=== PATIENT | male | born 1975 | race Caucasian/White ===

== ENCOUNTER 2018-07-24 13:26 | Emergency (ER) | payer BC ==
[2018-07-24] MEDS ORDERED: KETOROLAC TROMETHAMINE INJ/PF 30 MG/1 ML SDV IV ONE (14:40)
--- NOTE | 2018-07-24 14:42 | ER Document Report ---
ED GI/ - General Chief Complaint: Flank Pain Stated Complaint: FLANK PAIN Time Seen by Provider: 07/24/18 14:39 Primary Care Provider: DAISY GRANDA DO [Primary Care Provider] - Follow up as needed TRAVEL OUTSIDE OF THE [place] IN LAST 30 DAYS: No - Related Data Allergies/Adverse Reactions: No Known Allergies Allergy (Verified 07/24/18 13:35) Physical Exam - Vital signs Vitals: Temp Pulse Resp BP Pulse Ox 97.8 F 63 16 123/71 100 07/24/18 13:37 07/24/18 13:37 07/24/18 13:37 07/24/18 13:37 07/24/18 13:37 - General General appearance: Appears well, Alert In distress: None - HEENT Head: Normocephalic, Atraumatic Eyes: Normal Conjunctiva: Normal Nasal: Normal Mouth/Lips: Normal Mucous membranes: Normal Neck: Normal, Supple - Respiratory Respiratory status: No respiratory distress Chest status: Nontender Breath sounds: Normal. No: Rales, Rhonchi, Stridor, Wheezing Chest palpation: Normal - Cardiovascular Rhythm: Regular Heart sounds: S1 appreciated, S2 appreciated Murmur: No - Abdominal Inspection: Normal Distension: No distension - Back Back: CVA tenderness - Left - Extremities General upper extremity: Normal inspection, Normal strength General lower extremity: Normal inspection, Normal strength - Neurological Neuro grossly intact: Yes Cognition: Normal Orientation: AAOx4 Garret Coma Scale Eye Opening: Spontaneous [place] Coma Scale Verbal: Oriented Garret Coma Scale Motor: Obeys Commands Garret Coma Scale Total: 15 - Psychological Associated symptoms: Normal affect, Normal mood - Skin Skin Temperature: Warm Skin Moisture: Dry Skin Color: Normal Course - Vital Signs Vital signs: Temp Pulse Resp BP Pulse Ox 97.8 F 63 16 123/71 100 07/24/18 13:37 07/24/18 13:37 07/24/18 13:37 07/24/18 13:37 07/24/18 13:37 Discharge - Discharge Referrals: DAISY GRANDA DO [Primary Care Provider] - Follow up as needed
[2018-07-24 15:25] LABS: ABSOLUTE EOSINOPHILS # (AUTO) 0.2 10^3/uL (0.0-0.6); ABSOLUTE LYMPHOCYTES (AUTO) 2.1 10^3/uL (0.5-4.7); ABSOLUTE NEUT (AUTO) 6.6 10^3/uL (1.7-8.2); BASOPHILS % (AUTO) 0.5 % (0-2); EOSINOPHILS % (AUTO) 1.7 % (0-6); HEMATOCRIT 44.5 % (37.9-51.0); HEMOGLOBIN 15.3 g/dL (13.5-17.0); LYMPHOCYTES % (AUTO) 21.5 % (13-45); MEAN CORPUSCULAR HEMOGLOBIN 28.7 pg (27.0-33.4); MEAN CORPUSCULAR HGB CONC 34.3 g/dL (32.0-36.0); MEAN CORPUSCULAR VOLUME 84 fl (80-97); MONOCYTES % (AUTO) 9.8 % (3-13); PLATELET COUNT 265 10^3/uL (150-450); RED BLOOD COUNT 5.32 10^6/uL (4.35-5.55); RED CELL DISTRIBUTION WIDTH 13.8 % (11.5-14.0); SEGMENTED NEUTROPHILS % (AUTO) 66.5 % (42-78); TOTAL CELLS COUNTED % (AUTO) 100 %; WHITE BLOOD COUNT 9.9 10^3/uL (4.0-10.5)
--- NOTE | 2018-07-24 15:30 | ER Document Report ---
ED General - General Chief Complaint: Flank Pain Stated Complaint: FLANK PAIN Time Seen by Provider: 07/24/18 14:39 Primary Care Provider: DAISY GRANDA DO [Primary Care Provider] - Follow up as needed Mode of Arrival: Ambulatory Information source: Patient Notes: 42-year-old male with a history of kidney stones presents emergency department today complaining of left flank pain that radiates into the left lower quadrant. Symptoms started this morning. He describes the pain as a sharp and stabbing sensation. He states that it similar to his previous kidney stones. His last stone was 2 years ago and it passed on its own. He denies any nausea, vomiting, diarrhea, constipation, dysuria, hematuria, testicular pain, penile discharge. Patient was given Toradol in triage. He states that his pain is completely resolved. TRAVEL OUTSIDE OF THE [place] IN LAST 30 DAYS: No - HPI Onset: This morning Onset/Duration: Sudden Quality of pain: Sharp, Stabbing, Throbbing Associated symptoms: None Exacerbated by: Denies Relieved by: Denies Similar symptoms previously: Yes Recently seen / treated by doctor: No - Related Data Allergies/Adverse Reactions: No Known Allergies Allergy (Verified 07/24/18 13:35) Past Medical History - General Information source: Patient - Social History Smoking Status: Never Smoker Family History: Reviewed & Not Pertinent Review of Systems - Review of Systems Constitutional: No symptoms reported EENT: No symptoms reported Cardiovascular: No symptoms reported Respiratory: No symptoms reported Gastrointestinal: Abdominal pain Male Genitourinary: No symptoms reported Musculoskeletal: No symptoms reported Skin: No symptoms reported Hematologic/Lymphatic: No symptoms reported Neurological/Psychological: No symptoms reported -: Yes All other systems reviewed and negative Physical Exam - Vital signs Vitals: Temp 97.8 F 07/24/18 13:36 - Notes Notes: PHYSICAL EXAMINATION: GENERAL: Well-appearing, well-nourished and in no acute distress. HEAD: Atraumatic, normocephalic. EYES: Pupils equal round and reactive to light, extraocular movements intact, sclera anicteric, conjunctiva are normal. ENT: Nares patent, oropharynx clear without exudates. Moist mucous membranes. NECK: Normal range of motion, supple without lymphadenopathy LUNGS: Breath sounds clear to auscultation bilaterally and equal. No wheezes rales or rhonchi. HEART: Regular rate and rhythm without murmurs ABDOMEN: Soft, nontender, nondistended abdomen. No guarding, no rebound. No masses appreciated. Musculoskeletal: Normal range of motion, no pitting or edema. No cyanosis. NEUROLOGICAL: Cranial nerves grossly intact. Normal speech, normal gait. Normal sensory, motor exams PSYCH: Normal mood, normal affect. SKIN: Warm, Dry, normal turgor, no rashes or lesions noted. Course - Re-evaluation Re-evalutation: 07/24/18 18:40 Labs and imaging obtained. Urinalysis is significant for blood in the urine. Renal ultrasound done. Two 1 cm stones appreciated in the left kidney. I discussed the results with the patient. I told him that he is going to need to follow-up with a urologist as this will not pass on its own. I told him to take the medication prescribed as directed, to follow-up with his primary care physician and urologist this week, and to return for any worsening symptoms. Patient is agreeable to plan of care. - Vital Signs Vital signs: Temp Pulse Resp BP Pulse Ox 97.8 F 63 16 123/71 100 07/24/18 13:37 07/24/18 13:37 07/24/18 13:37 07/24/18 13:37 07/24/18 13:37 - Laboratory Result Diagrams: 07/24/18 14:56 07/24/18 14:56 Laboratory results interpreted by me: 07/24/18 07/24/18 14:56 14:56 Sodium 146.5 H Carbon Dioxide 34 H Urine Blood LARGE H Urine Urobilinogen 2.0 H Discharge - Discharge Clinical Impression: Kidney stones Condition: Good Disposition: HOME, SELF-CARE Instructions: Kidney Stone ([facility]) Prescriptions: Hydrocodone/Acetaminophen [[place] 5-325 Tablet] 1 each PO Q4 #5 tablet Forms: Return to Work Referrals: DAISY GRANDA DO [Primary Care Provider] - Follow up as needed DEMAR BALL MD [NO LOCAL MD] - Follow up as needed SEEMA ALDANA MD [NO LOCAL MD] - Follow up as needed
[2018-07-24 15:37] LABS: APPEARANCE,URINE SLIGHTLY-CLOUDY; BILIRUBIN,URINE NEGATIVE (NEGATIVE); COLOR,URINE YELLOW; GLUCOSE, URINE NEGATIVE (NEGATIVE); KETONES,URINE NEGATIVE (NEGATIVE); LEUKOCYTE ESTERASE,URINE NEGATIVE (NEGATIVE); NITRITE,URINE NEGATIVE (NEGATIVE); PROTEIN,URINE NEGATIVE (NEGATIVE); URINE SPECIFIC GRAVITY 1.019
[2018-07-24 15:56] LABS: BLOOD UREA NITROGEN 10 mg/dL (7-20); CALCIUM 9.7 mg/dL (8.4-10.2); GLUCOSE 86 mg/dL (75-110)
[2018-07-24 15:57] LABS: ANION GAP 8 (5-19); CARBON DIOXIDE 34 mmol/L (22-30); CHLORIDE 105 mmol/L (98-107); POTASSIUM 4.5 mmol/L (3.6-5.0); SODIUM 146.5 mmol/L (137-145)
--- NOTE | 2018-07-24 18:13 | RADIOLOGY REPORT (SQ) ---
EXAM DESCRIPTION: U/S RETROPERITON (RENAL/AORTA) COMPLETED DATE/TIME: 07/24/2018 5:57 pm REASON FOR STUDY: L flank pain, hx stones COMPARISON: None. TECHNIQUE: Dynamic and static grayscale images acquired of the kidneys and bladder and recorded on P ACS. Additional selected color Doppler and spectral images recorded. LIMITATIONS: None. FINDINGS: RIGHT KIDNEY: Normal size. Normal echogenicity. No solid or suspicious masses. No hydronep hrosis. No calcifications. LEFT KIDNEY: Normal size. There are 2 peripheral 1 cm calculi. There is caliectasis. No identifie d obstructing calculus. BLADDER: No masses. OTHER FINDINGS: No other significant finding. IMPRESSION: Bilateral 1 cm calculi in the left kidney. Mild caliectasis. Site of obstruction not i dentified. TECHNICAL DOCUMENTATION: JOB ID: [id number] [employer]- All Rights Reserved Reading location - IP/workstation name: [email or web address]
[2018-07-24 18:42] VITALS: BP 123/89
== END 2018-07-24 18:42 | disposition home or self-care (01) ==
LOC: ER 13:26
DX: N20.0 Calculus of kidney (principal); R31.9 Hematuria, unspecified
CPT/HCPCS: 99284; 96374; 36415; 85025; 80048; 81001; 76770; J1885